=== PATIENT | female | born 1960 | race Caucasian/White ===

== ENCOUNTER 2021-07-17 12:13 | Outpatient (CLI) | payer BC ==
[2021-07-17 13:34] LABS: INR-International Normal Ratio 0.9; Prothrombin Time 10.4 sec (9.5-12.1)
[2021-07-17 13:36] LABS: Anion Gap 18 mmol/L (10-20); BUN (Urea Nitrogen) 23 mg/dL (9.8-20.1); Calc. Creatinine Clearance 0 mL/min (70-130); Carbon Dioxide 21 mmol/L (22-29); Chloride 101 mmol/L (98-107); Glucose 104 mg/dL (70-105); Potassium 4.3 mmol/L (3.5-5.1); Sodium 136 mmol/L (136-145)
[2021-07-17 13:44] LABS: #Basophils 0.1 10x3/uL (0.0-0.2); #Eosinphils 0.4 10x3/uL (0.0-0.5); #Monocytes 1.5 10x3/uL (0.0-1.1); #Neutrophils 14.8 10x3/uL (1.5-8.4); %Basophils 0.6 % (0.0-2.0); %Eosinophils 1.8 % (0.0-6.0); %Lymphocytes 13.4 % (18.0-47.0); %Monocytes 7.4 % (0.0-10.0); Hemoglobin 10.9 g/dL (12.0-15.5); Mean Corpuscular HGB CONC 31.3 g/dL (32.0-36.0); Mean Corpuscular Hemoglobin 29.5 pg (27.0-33.0); Mean Corpuscular Volume 94.3 fl (81.6-98.3); Platelet Count 529 10x3/uL (150-450); RBC Distribution Width 13.8 % (11.5-14.5); Red Blood Cell (RBC) Count 3.69 10x6/uL (3.90-5.03); White Blood Cell (WBC) Count 19.5 10x3/uL (3.5-10.5)
[2021-07-18 14:14] LABS: SARS-CoV-2 PCR by NAA Not Detected (NotDetected)
== END 2021-07-17 12:14 | disposition home or self-care (01) ==
LOC: LABBT 12:13
PROVIDERS: ATTEND Orthopaedic Surgery
DX: Z01.818 Encounter for other preprocedural examination (principal); M16.11 Unilateral primary osteoarthritis, right hip; Z20.822 Contact with and (suspected) exposure to COVID-19
CPT/HCPCS: 80048; 85025; 85610; 87081; 93005; 93010; U0003; U0005

== ENCOUNTER 2021-07-24 08:56 | Inpatient (IN) | payer BC ==
[~2021-07-24 08:56] MED LIST: Lorazepam 1 MG TAB PO PRN
[2021-07-24] MEDS ORDERED: Vancomycin 1 GM/200 ML BAG ONE (09:51)
[2021-07-24] MEDS ORDERED: Sodium Chloride 0.9% 100 ML ONE (09:51)
[2021-07-24] MEDS ORDERED: Tranexamic Acid 1,000 MG/10 ML VIAL ONE ×2 (09:51→17:44)
[2021-07-24] MEDS ORDERED: Midazolam HCl 2 mg/2 ml Vial ONE ×2 (11:25→15:53)
[2021-07-24] MEDS ORDERED: Fentanyl 100 MCG/2 ML VIAL ONE ×3 (11:25→14:14)
[2021-07-24] MEDS ORDERED: Dexamethasone 4 mg/ml Vial ONE (11:26)
[2021-07-24] MEDS ORDERED: PROPOFOL 200 MG/20 ML VIAL ONE (14:21)
[2021-07-24] MEDS ORDERED: Ondansetron PF 4 MG/2 ML Vial ONE (14:21)
[2021-07-24] MEDS ORDERED: Lidocaine 1% PF 5 ML VIAL ONE (14:21)
[2021-07-24] MEDS ORDERED: Rocuronium Bromide 10 MG/ML (10ML VIAL) ONE (14:21)
[2021-07-24] MEDS ORDERED: Bupivacaine HCl 0.5%/Epinephrine 1:200,000/PF 30 ml Vial ONE (14:21)
[2021-07-24] MEDS ORDERED: Metoclopramide HCl 10 MG/2 ML VIAL ONE (14:21)
[2021-07-24] MEDS ORDERED: Dexamethasone 20 MG/5 ML VIAL ONE (14:21)
[2021-07-24] MEDS ORDERED: Glycopyrrolate 0.2 MG/ML 5 ML SYRINGE ONE (14:21)
[2021-07-24] MEDS ORDERED: HYDROmorphone 2 MG/ML VIAL ONE (14:50)
[2021-07-24] MEDS ORDERED: Zolpidem Tartrate 5 MG TAB PO PRN (15:43)
[2021-07-24] MEDS ORDERED: Acetaminophen 325 MG TAB PO PRN (15:43)
[2021-07-24] MEDS ORDERED: diphenhydrAMINE 25 MG CAP PO PRN (15:43)
[2021-07-24] MEDS ORDERED: Ondansetron PF 4 MG/2 ML Vial IVP PRN (15:43)
[2021-07-24] MEDS ORDERED: HYDROcodone/Acetaminophen 10/325 mg Tablet PO PRN (15:43)
[2021-07-24] MEDS ORDERED: traMADol HCl 50 MG TAB PO PRN (15:43)
[2021-07-24] MEDS ORDERED: Fentanyl 100 MCG/2 ML VIAL SLOW IVP PRN (15:43)
[2021-07-24] MEDS ORDERED: Promethazine HCl 25 MG/ML VIAL IM PRN ×2 (15:43→16:05)
[2021-07-24] MEDS ORDERED: Labetalol HCl 100 MG/20 ML VIAL ONE (15:57)
[2021-07-24] MEDS ORDERED: Ondansetron HCl/PF 4 MG/2 ML Vial IVP PRN (16:05)
[2021-07-24] MEDS ORDERED: Promethazine HCl 25 MG/ML VIAL IVPB PRN (16:05)
[2021-07-24] MEDS ORDERED: Morphine Sulfate 2 MG/ML SYRINGE SLOW IVP PRN (16:05)
[2021-07-24] MEDS ORDERED: Lorazepam 2 MG/ML VIAL IM PRN (18:00)
[2021-07-24] MEDS ORDERED: Ondansetron ODT 4 MG TAB PO PRN (18:00)
[2021-07-24] MEDS ORDERED: Electrolyte Replacement Protocol 1 EACH FS PRN (18:00)
[2021-07-24] MEDS ORDERED: hydrALAZINE 20 MG/ML VIAL SLOW IVP PRN ×2 (18:26→18:40)
[2021-07-24] MEDS: Lorazepam 1 MG TAB PO SCH (21:40)
[2021-07-24] MEDS: Sodium Chloride 0.9% 1,000 ML IV SCH (22:25)
[2021-07-24] MEDS: CEFAZOLIN 2 GM, Admixture Fee 1 EACH in Sodium Chloride 0.9% 100 ML IVPB SCH (22:26)
[2021-07-24] MEDS: Thiamine HCl 200 MG/2 ML VIAL SLOW IVP SCH (22:27)
[2021-07-24] MEDS: Ketorolac Tromethamine 30 MG/ML VIAL IVP SCH (22:28)
[2021-07-24] MEDS: Aspirin 81 mg Enteric Coated Tablet PO SCH (22:28)
[2021-07-25] MEDS: Lorazepam 1 MG TAB PO SCH ×4 (00:18→16:58)
[2021-07-25] MEDS: CEFAZOLIN 2 GM, Admixture Fee 1 EACH in Sodium Chloride 0.9% 100 ML IVPB SCH (01:31)
[2021-07-25] MEDS: Ketorolac Tromethamine 30 MG/ML VIAL IVP SCH ×3 (05:21→21:03)
[2021-07-25] MEDS: Levothyroxine Sodium 75 MCG TAB PO SCH (05:21)
[2021-07-25] MEDS: Sodium Chloride 0.9% 1,000 ML IV SCH ×2 (06:32→17:06)
[2021-07-25 06:36] LABS: #Lymphocytes 1.1 thou/uL (1.20-3.40); #Monocytes 1.5 thou/uL (0.11-0.59); #Neutrophils 15.2 thou/uL (1.40-6.50); %Basophils 0.1 % (0.0-1.0); %Lymphocytes 6.4 % (21.0-51.0); %Monocytes 8.2 % (0.0-10.0); %Neutrophils 85.3 % (42.0-75.0); Hemoglobin 8.7 g/dL (12.0-16.0); Mean Corpuscular HGB CONC 32.3 g/dL (32.0-36.0); Mean Corpuscular Hemoglobin 29.9 pg (27.0-31.0); Mean Corpuscular Volume 92.4 fL (78.0-98.0); Mean Platelet Volume 7.5 fL (7.4-10.4); Platelet Count 450 thou/uL (130-400); RBC Distribution Width 12.9 % (11.5-14.5); Red Blood Cell (RBC) Count 2.92 mill/uL (4.20-5.40); White Blood Cell (WBC) Count 17.8 thou/uL (4.8-10.8)
[2021-07-25 07:00] LABS: ALT (SGPT) 10 U/L (8-55); AST (SGOT) 18 U/L (5-34); Albumin 3.3 g/dL (3.5-5.0); Alkaline Phosphatase 85 U/L (40-110); Anion Gap 15 mmol/L (10-20); BUN (Urea Nitrogen) 20 mg/dL (9.8-20.1); Bilirubin, Total 0.2 mg/dL (0.2-1.2); Calc. Creatinine Clearance 0 mL/min (70-130); Calcium 9.1 mg/dL (7.8-10.44); Carbon Dioxide 23 mmol/L (22-29); Chloride 97 mmol/L (98-107); Globulin 2.6 g/dL (2.4-3.5); Glucose 110 mg/dL (70-105); Potassium 4.5 mmol/L (3.5-5.1); Protein, Total 5.9 g/dL (6.0-8.3); Sodium 130 mmol/L (136-145)
[2021-07-25] MEDS: Aspirin 81 mg Enteric Coated Tablet PO SCH ×2 (07:52→21:03)
[2021-07-25] MEDS: Senokot S 8.6-50 MG TAB PO SCH ×2 (07:52→21:02)
[2021-07-25] MEDS: Multivit, Therapeutic 1 TAB PO SCH (07:53)
[2021-07-25] MEDS: Ferrous Gluconate 324 MG TAB PO SCH ×2 (07:54→16:58)
[2021-07-25] MEDS: Furosemide 20 MG TAB PO SCH (07:54)
[2021-07-25] MEDS: Multivitamin W/ Minerals 1 TAB PO SCH (07:54)
[2021-07-25] MEDS: Lisinopril 20 MG TAB PO SCH (07:54)
[2021-07-25] MEDS: Folic Acid 1 MG TAB PO SCH (07:55)
[2021-07-25] MEDS ORDERED: Hydrochlorothiazide 25 MG TAB PO SCH (09:00)
[2021-07-25] MEDS: HYDROcodone/Acetaminophen 10/325 mg Tablet PO PRN ×2 (09:11→18:31)
[2021-07-25] MEDS ORDERED: Lorazepam 1 MG TAB PO PRN (18:00)
[2021-07-26] MEDS: Thiamine HCl 200 MG/2 ML VIAL SLOW IVP SCH (00:54)
[2021-07-26] MEDS: Lorazepam 1 MG TAB PO SCH (00:54)
[2021-07-26] MEDS: Levothyroxine Sodium 75 MCG TAB PO SCH (05:57)
[2021-07-26] MEDS: Ketorolac Tromethamine 30 MG/ML VIAL IVP SCH ×2 (05:57→14:18)
[2021-07-26] MEDS: Lorazepam 0.5 MG TAB PO SCH ×2 (06:06→13:31)
[2021-07-26] MEDS: Sodium Chloride 0.9% 1,000 ML IV SCH (06:07)
[2021-07-26 06:32] LABS: #Eosinphils 0.2 thou/uL (0.0-0.7); #Lymphocytes 2.4 thou/uL (1.20-3.40); #Monocytes 0.9 thou/uL (0.11-0.59); #Neutrophils 6.7 thou/uL (1.40-6.50); %Basophils 0.3 % (0.0-1.0); %Eosinophils 1.9 % (0.0-10.0); %Lymphocytes 23.5 % (21.0-51.0); %Monocytes 8.6 % (0.0-10.0); %Neutrophils 65.7 % (42.0-75.0); Hemoglobin 8.4 g/dL (12.0-16.0); Mean Corpuscular HGB CONC 33.4 g/dL (32.0-36.0); Mean Corpuscular Hemoglobin 31.5 pg (27.0-31.0); Mean Corpuscular Volume 94.6 fL (78.0-98.0); Mean Platelet Volume 7.2 fL (7.4-10.4); Platelet Count 311 thou/uL (130-400); RBC Distribution Width 12.9 % (11.5-14.5); Red Blood Cell (RBC) Count 2.66 mill/uL (4.20-5.40); White Blood Cell (WBC) Count 10.2 thou/uL (4.8-10.8)
[2021-07-26 06:48] LABS: Anion Gap 12 mmol/L (10-20); BUN (Urea Nitrogen) 22 mg/dL (9.8-20.1); Calc. Creatinine Clearance 0 mL/min (70-130); Carbon Dioxide 24 mmol/L (22-29); Chloride 99 mmol/L (98-107); Glucose 96 mg/dL (70-105); Sodium 131 mmol/L (136-145)
[2021-07-26] MEDS: Aspirin 81 mg Enteric Coated Tablet PO SCH (09:02)
[2021-07-26] MEDS: Folic Acid 1 MG TAB PO SCH (09:02)
[2021-07-26] MEDS: Ferrous Gluconate 324 MG TAB PO SCH (09:02)
[2021-07-26] MEDS: Multivit, Therapeutic 1 TAB PO SCH (09:02)
[2021-07-26] MEDS: Lisinopril 20 MG TAB PO SCH (09:02)
[2021-07-26] MEDS: Multivitamin W/ Minerals 1 TAB PO SCH (09:02)
[2021-07-26] MEDS: Furosemide 20 MG TAB PO SCH ×2 (09:03→09:29)
[2021-07-26] MEDS: Senokot S 8.6-50 MG TAB PO SCH (09:03)
[2021-07-26 12:21] VITALS: BP 112/74; TEMP 97.4
[2021-07-26] MEDS: HYDROcodone/Acetaminophen 10/325 mg Tablet PO PRN (14:19)
[2021-07-26] MEDS ORDERED: Lorazepam 1 MG TAB PO PRN (18:00)
[2021-07-27] MEDS ORDERED: Lorazepam 0.5 MG TAB PO PRN (06:00)
[2021-07-27] MEDS ORDERED: Thiamine 100 MG TAB PO SCH (09:00)
== END 2021-07-26 14:40 | disposition home or self-care (01) | DRG 470 ==
LOC: SDC 08:56 → SJJU 15:43
PROVIDERS: ADMIT Orthopaedic Surgery; ATTEND Internal Medicine Geriatric Medicine
PROC: 0SR903A Replacement of Right Hip Joint with Ceramic Synthetic Substitute, Uncemented, Open Approach (ICD-10-PCS; principal; 2021-07-25)
DX: M16.11 Unilateral primary osteoarthritis, right hip (principal); M87.851 Other osteonecrosis, right femur; E87.1 Hypo-osmolality and hyponatremia; D62 Acute posthemorrhagic anemia; Z20.822 Contact with and (suspected) exposure to COVID-19; I10 Essential (primary) hypertension; E78.5 Hyperlipidemia, unspecified; E03.9 Hypothyroidism, unspecified; F10.10 Alcohol abuse, uncomplicated; E86.0 Dehydration; D72.829 Elevated white blood cell count, unspecified; Z90.49 Acquired absence of other specified parts of digestive tract; Z87.891 Personal history of nicotine dependence; Z79.890 Hormone replacement therapy; Z79.899 Other long term (current) drug therapy
CPT/HCPCS: 36415; 80048; 80053; 85025; 87070; 87205; C1776; J0690; J1100; J1170; J1885; J2250; J2405; J2704; J2765; J3010; J3370; J3411; J3490; J7050

== ENCOUNTER 2024-04-14 07:04 | Observation (INO) | payer BC ==
[2024-04-05 10:15] VITALS: BMI 24.5
[2024-04-14] MEDS ORDERED: Vancomycin 1 GM/200 ML (FROZEN) BAG ONE (08:26)
[2024-04-14] MEDS ORDERED: Sodium Chloride 0.9% 100 ML ONE ×2 (08:26→10:21)
[2024-04-14] MEDS ORDERED: Tranexamic Acid 1,000 MG/10 ML VIAL ONE (08:26)
[2024-04-14] MEDS ORDERED: fentaNYL 50 mcg/mL 1 mL Vial ONE ×2 (10:13→14:23)
[2024-04-14] MEDS ORDERED: Famotidine/PF 20 mg/2ml Vial ONE (10:13)
[2024-04-14] MEDS ORDERED: CEFAZOLIN 2 GM VIAL ONE (10:21)
[2024-04-14] MEDS ORDERED: Midazolam HCl 2 mg/2 ml Vial ONE (10:25)
[2024-04-14] MEDS ORDERED: Lidocaine 2% PF 5 ML VIAL ONE (10:29)
[2024-04-14] MEDS ORDERED: PROPOFOL 60 ML ONE (10:29)
[2024-04-14] MEDS ORDERED: Dexamethasone 4 mg/ml Vial ONE (11:19)
[2024-04-14] MEDS ORDERED: Ondansetron PF 4 MG/2 ML Vial ONE (11:19)
[2024-04-14] MEDS ORDERED: Ondansetron HCl/PF 4 MG/2 ML Vial IVP PRN (11:55)
[2024-04-14] MEDS ORDERED: Ketorolac Tromethamine 30 MG/ML VIAL IVP PRN (11:55)
[2024-04-14] MEDS ORDERED: Promethazine HCl 25 MG/ML VIAL IM PRN ×2 (11:55→12:13)
[2024-04-14] MEDS ORDERED: Zolpidem Tartrate 5 MG TAB PO PRN (12:13)
[2024-04-14] MEDS ORDERED: diphenhydrAMINE 25 MG CAP PO PRN (12:13)
[2024-04-14] MEDS ORDERED: Morphine 2 MG/ML VIAL SLOW IVP PRN (12:13)
[2024-04-14] MEDS ORDERED: fentaNYL 50 mcg/mL 1 mL Vial SLOW IVP PRN (12:13)
[2024-04-14] MEDS ORDERED: traMADol HCl 50 MG TAB PO PRN ×2 (12:13)
[2024-04-14] MEDS ORDERED: Acetaminophen 325 MG TAB PO PRN (12:13)
[2024-04-14] MEDS ORDERED: Famotidine 20 MG TAB PO PRN (15:22)
[2024-04-14] MEDS: fentaNYL 50 mcg/mL 1 mL Vial SLOW IVP PRN (15:28)
[2024-04-14] MEDS: HYDROcodone/Acetaminophen 10/325 mg Tablet PO PRN ×2 (16:42→21:29)
[2024-04-14] MEDS ORDERED: Electrolyte Replacement Protocol 1 EACH FS SCH (16:45)
[2024-04-14] MEDS: CEFAZOLIN 2 GM in Sodium Chloride 0.9% 100 ML IVPB SCH (17:41)
[2024-04-14] MEDS: Thiamine HCl 200 MG/2 ML VIAL SLOW IVP SCH (17:48)
[2024-04-14] MEDS: Sodium Chloride 0.9% 1,000 ML IV SCH (19:38)
[2024-04-14] MEDS: Multivit, Therapeutic 1 TAB PO SCH (21:28)
[2024-04-14] MEDS: Folic Acid 1 MG TAB PO SCH (21:28)
[2024-04-14] MEDS: Senokot S 8.6-50 MG TAB PO SCH (21:28)
[2024-04-14] MEDS: Ferrous Gluconate 324 MG TAB PO SCH (21:29)
[2024-04-14] MEDS: Atorvastatin Calcium 20 MG TAB PO SCH (21:29)
[2024-04-14] MEDS: Aspirin 81 mg Enteric Coated Tablet PO SCH (21:29)
[2024-04-14] MEDS: Morphine 4 MG/ML VIAL SLOW IVP PRN (22:42)
[2024-04-15] MEDS: Levothyroxine Sodium 75 MCG TAB PO SCH (05:57)
[2024-04-15 06:43] LABS: Hematocrit 34.2 % (36.0-47.0); Hemoglobin 10.8 g/dL (12.0-16.0); Mean Corpuscular HGB CONC 31.6 g/dL (32.0-36.0); Mean Corpuscular Hemoglobin 29.3 pg (27.0-31.0); Mean Corpuscular Volume 92.9 fL (78.0-98.0); Mean Platelet Volume 10.9 fL (7.4-10.4); Platelet Count 327 10x3/uL (130-400); Red Blood Cell (RBC) Count 3.68 mill/uL (4.20-5.40)
[2024-04-15 07:14] LABS: ALT (SGPT) 20 U/L (8-55); AST (SGOT) 89 U/L (5-34); Albumin 3.2 g/dL (3.4-4.8); Alkaline Phosphatase 127 U/L (40-110); Anion Gap 16 mmol/L (10-20); BUN (Urea Nitrogen) 21 mg/dL (9.8-20.1); Bilirubin, Total 0.2 mg/dL (0.2-1.2); Calc. Creatinine Clearance 53 mL/min (70-130); Calcium 9.1 mg/dL (7.8-10.44); Carbon Dioxide 18 mmol/L (23-31); Chloride 105 mmol/L (98-107); Estimated GFR 60; Globulin 3.2 g/dL (2.4-3.5); Glucose 96 mg/dL (80-115); Magnesium 1.1 mg/dL (1.6-2.6); Phosphorus 4.1 mg/dL (2.3-4.7); Potassium 3.9 mmol/L (3.5-5.1); Protein, Total 6.4 g/dL (5.8-8.1); Sodium 135 mmol/L (136-145)
[2024-04-15] MEDS: Magnesium Sulfate In Water 4 GM in Premix 1 BAG IVPB SCH (09:06)
[2024-04-15] MEDS: Ondansetron PF 4 MG/2 ML Vial IVP PRN (09:11)
[2024-04-15 11:57] VITALS: BMI 24.5
[2024-04-15] MEDS: Sertraline 100 MG TAB PO SCH (12:56)
[2024-04-15] MEDS: Amlodipine 10 MG TAB PO SCH (12:56)
[2024-04-15] MEDS: Multivitamin W/ Minerals 1 TAB PO SCH (12:59)
[2024-04-15] MEDS: Lisinopril 20 MG TAB PO SCH (13:07)
[2024-04-16 05:42] VITALS: TEMP 98.4
[2024-04-16 05:42] LABS: Hematocrit 31.5 % (36.0-47.0); Mean Corpuscular HGB CONC 31.7 g/dL (32.0-36.0); Mean Corpuscular Hemoglobin 29.3 pg (27.0-31.0); Mean Corpuscular Volume 92.4 fL (78.0-98.0); Mean Platelet Volume 10.3 fL (7.4-10.4); Platelet Count 245 10x3/uL (130-400); RBC Distribution Width 13.1 % (11.5-14.5); Red Blood Cell (RBC) Count 3.41 mill/uL (4.20-5.40)
[2024-04-16 06:08] LABS: ALT (SGPT) 12 U/L (8-55); AST (SGOT) 77 U/L (5-34); Albumin 2.9 g/dL (3.4-4.8); Alkaline Phosphatase 127 U/L (40-110); Anion Gap 16 mmol/L (10-20); BUN (Urea Nitrogen) 22 mg/dL (9.8-20.1); Bilirubin, Total 0.3 mg/dL (0.2-1.2); Calc. Creatinine Clearance 67 mL/min (70-130); Calcium 9.2 mg/dL (7.8-10.44); Carbon Dioxide 20 mmol/L (23-31); Chloride 105 mmol/L (98-107); Estimated GFR 80; Globulin 3.2 g/dL (2.4-3.5); Glucose 89 mg/dL (80-115); Magnesium 2.2 mg/dL (1.6-2.6); Potassium 3.5 mmol/L (3.5-5.1); Protein, Total 6.1 g/dL (5.8-8.1); Sodium 137 mmol/L (136-145)
[2024-04-16 07:26] VITALS: BP 133/82
[2024-04-16] MEDS ORDERED: Potassium Chloride 20 MEQ TAB PO SCH (08:00)
[2024-04-16] MEDS: Potassium Chloride 20 MEQ TAB PO SCH (08:49)
[2024-04-17] MEDS ORDERED: Thiamine 100 MG TAB PO SCH (21:00)
== END 2024-04-16 14:04 | disposition home or self-care (01) ==
LOC: SDC 07:04 → SURG B 12:13
PROVIDERS: ADMIT Orthopaedic Surgery; ATTEND Orthopaedic Surgery
PROC: 0SRB0JZ Replacement of Left Hip Joint with Synthetic Substitute, Open Approach (ICD-10-PCS; principal; 2024-04-16)
DX: M17.12 Unilateral primary osteoarthritis, left knee (principal); M70.62 Trochanteric bursitis, left hip; M87.9 Osteonecrosis, unspecified; I10 Essential (primary) hypertension; E07.9 Disorder of thyroid, unspecified; F10.90 Alcohol use, unspecified, uncomplicated; F90.9 Attention-deficit hyperactivity disorder, unspecified type; F41.9 Anxiety disorder, unspecified; E78.5 Hyperlipidemia, unspecified; Z90.49 Acquired absence of other specified parts of digestive tract; Z98.890 Other specified postprocedural states; Z79.899 Other long term (current) drug therapy
CPT/HCPCS: 36415; 72170; 80053; 83735; 84100; 85027; C1713; C1776; J1100; J2001; J2250; J2272; J2405; J2704; J3010; J3370-JW; J3411; J3475; J3490